=== PATIENT | female | born 2000 | race Hispanic/Latino ===

== ENCOUNTER 2020-06-05 22:39 | Emergency (ER) | payer OTHER ==
[2020-06-05] MEDS ORDERED: Ketorolac Tromethamine 30 MG/ML VIAL ONE (23:41)
[2020-06-05] MEDS ORDERED: Dexamethasone 10 MG/ML VIAL ONE (23:41)
--- NOTE | 2020-06-06 07:33 | RAD ---
PORTABLE CHEST: Date: 06/05/2020 PROVIDED CLINICAL HISTORY: Chest pain. FINDINGS: Cardiac and mediastinal silhouette is within normal limits. No lobar consolidation, pleural fluid, or pneumothorax apparent. IMPRESSION: No evidence for an acute cardiopulmonary process. POS: JUAN MIGUEL
== END 2020-06-06 00:49 | disposition home or self-care (01) ==
LOC: ERS 22:39
DX: U07.1 COVID-19 (principal)
CPT/HCPCS: 71045; 93005; 96372; J1100; J1885

== ENCOUNTER 2022-11-01 07:24 | Emergency (ER) | payer OTHER | END 2022-11-01 09:26 | disposition home or self-care (01) | LOC: ERS 07:24 | DX: O02.81 Inappropriate change in quantitative human chorionic gonadotropin (hCG) in early pregnancy (principal); Z3A.00 Weeks of gestation of pregnancy not specified | CPT/HCPCS: 36415; 84702; 99282 ==